=== PATIENT | female | born 1990 | race Caucasian/White ===

== ENCOUNTER 2018-02-05 10:36 | Emergency (ER) | payer OTHER ==
[~2018-02-05] VITALS: Ht 160 cm; Wt 83.1 kg
[~2018-02-05 10:36] MED LIST: Dilaudid PO; Feosol PO; MULTIVITAMIN1 EAC1 PO; Methadone PO; Motrin PO; PREFERA-OB P1 TABLET PO
[2018-02-05] MEDS ORDERED: SKELAXIN800 MG PO (11:30)
[2018-02-05] MEDS ORDERED: VOLTAREN 1% GE100 GM TP (11:30)
[2018-02-05] MEDS ORDERED: LIDODERM 5% P1 PATCH TD (11:30)
[2018-02-05] MEDS ORDERED: MOTRIN800 MG PO (11:30)
[2018-02-05 11:31] LABS: APPEARANCE CLEAR ((CLEAR)); BILIRUBIN NEGATIVE; BLOOD NEGATIVE; COLOR YELLOW ((YELLOW)); GLUCOSE (STRIP) NEGATIVE; KETONES NEGATIVE; LEUKOCYTES NEGATIVE; NITRITE NEGATIVE; PROTEIN (STRIP) 30; SPECIFIC GRAVITY 1.026 (1.000-1.030); UCUL ADDED? NO; UROBILINOGEN 0.2 MG/DL (0.2-1.0)
[2018-02-05 12:46] VITALS: BP 146/89
== END 2018-02-05 12:47 | disposition home or self-care (01) ==
LOC: EME 10:36
PROVIDERS: Nurse Practitioner Family
DX: M54.41 Lumbago with sciatica, right side (principal); F17.200 Nicotine dependence, unspecified, uncomplicated; Z98.1 Arthrodesis status; Z88.8 Allergy status to other drugs, medicaments and biological substances; Z91.030 Bee allergy status
CPT/HCPCS: 81003; 99281; 99284; J1885

== ENCOUNTER 2018-05-23 23:54 | Emergency (ER) | payer OTHER ==
[~2018-05-23] VITALS: Ht 162.6 cm; Wt 85.2 kg
[~2018-05-23 23:54] MED LIST changes: +LIDODERM 5% P1 PATCH TD; +MOTRIN800 MG PO; +SKELAXIN800 MG PO; +VOLTAREN 1% GE100 GM TP
[2018-05-24] MEDS ORDERED: NORCO 5/3251 TABLET PO (01:56)
[2018-05-24 02:14] VITALS: BP 131/92
== END 2018-05-24 02:18 | disposition home or self-care (01) ==
LOC: EME 23:54
DX: S02.5XXA Fracture of tooth (traumatic), initial encounter for closed fracture (principal); Z87.19 Personal history of other diseases of the digestive system
CPT/HCPCS: 99281; 99284; J2270